=== PATIENT | male | born 1980 | race Caucasian/White ===

== ENCOUNTER 2016-05-18 22:05 | Emergency (ER) | payer MEDICARE, MEDICAID ==
[2016-05-18] MEDS ORDERED: PROAIR HFA8.5 GM INH (22:13)
[2016-05-18] MEDS ORDERED: VENTOLIN HFA18 G2 PO (23:11)
[2016-05-18] MEDS ORDERED: LEVAQUIN750 M1 PO (23:11)
== END 2016-05-18 23:22 ==
LOC: EDMED 22:05
DX: J01.90 Acute sinusitis, unspecified (principal); J40 Bronchitis, not specified as acute or chronic; F17.210 Nicotine dependence, cigarettes, uncomplicated